=== PATIENT | male | born 1965 | race Caucasian/White ===

== ENCOUNTER 2018-03-18 12:45 | Emergency (ER) | payer BC ==
[~2018-03-18] VITALS: Ht 185.4 cm; Wt 99.8 kg
[2018-03-18 13:31] LABS: Urine Bacteria NONE SEEN /hpf (None Seen); Urine Blood Negative /uL (Negative); Urine WBC <1 /hpf (0 - 3)
[2018-03-18 13:51] LABS: Alcohol, Urine < 3.0 mg/dL (0-5); Amphetamine Screen, Urine NEGATIVE (NEGATIVE); Barbiturate Scree,Urine NEGATIVE (NEGATIVE); Benzodiazephine Screen, Urine NEGATIVE (NEGATIVE); Cannabinoid Screen, Urine POSITIVE (NEGATIVE); Cocaine Screen, Urine NEGATIVE (NEGATIVE); Opiate Scree,Urine NEGATIVE (NEGATIVE); Phencyclidine Screen, Urine NEGATIVE (NEGATIVE)
[2018-03-18 13:53] LABS: Basophils # (auto) 0.1 uL; Basophils % (auto) 1.3 % (0.0-2.0); Eosinophils # (auto) 0.3 uL; Eosinophils % (auto) 3.3 % (0.0-7.0); Hematocrit 47.9 % (41.0-53.0); Hemoglobin 16.9 g/dL (13.5-17.5); Lymphocytes # (auto) 2.4 uL; Lymphocytes % (auto) 29.9 % (10.0-50.0); Mean Corpuscular Hgb Conc. 35.2 g/dL (32.0-36.0); Mean Corpuscular Volume 93.8 fL (80.0-100.0); Monocytes # (auto) 0.7 uL; Monocytes % (auto) 9.1 % (0.0-12.0); Neutrophils # (auto) 4.6 uL; Neutrophils % (auto) 56.4 % (37.0-80.0); Platelet Count (auto) 270 10^3/uL (140-450); Red Blood Cells 5.11 10^6/uL (4.5-5.90); Red Cell Distribution Width 13.6 % (11.8-14.3); White Blood Cell 8.1 10^3/uL (4.4-10.8)
[2018-03-18 14:19] LABS: Alanine Aminotransferase 203 U/L (16-61); Albumin 4.2 g/dL (3.4-5.0); Alkaline Phosphatase 60 U/L (45-117); Anion Gap 10 (5-15); Aspartate Aminotransferase 105 U/L (15-37); BUN/Creatinine Ratio 16.3; Bilirubin, Total 0.7 mg/dL (0.2-1.0); Blood Urea Nitrogen 15 mg/dL (7-18); Calcium 8.8 mg/dL (8.5-10.1); Carbon Dioxide 24 mmol/L (21-32); Chloride 103 mmol/L (98-107); GFR African American 111 mL/min; GFR Non-African American 92 mL/min; Glucose 87 mg/dL (74-106); Potassium 4.1 mmol/L (3.5-5.1); Sodium 137 mmol/L (136-145); Total Protein 8.2 g/dL (6.4-8.2)
[2018-03-18 17:05] VITALS: BP 146/91
== END 2018-03-18 18:32 | disposition home or self-care (01) ==
LOC: ER 12:47
DX: M50.10 Cervical disc disorder with radiculopathy, unspecified cervical region (principal); R94.5 Abnormal results of liver function studies; F12.10 Cannabis abuse, uncomplicated; E78.5 Hyperlipidemia, unspecified; I10 Essential (primary) hypertension
CPT/HCPCS: 36415; 70450; 72125; 80053; 80307; 81001; 84484; 85025; 93005